=== PATIENT | female | born 1990 ===

== ENCOUNTER 2019-08-03 08:34 | Emergency (ER) | payer MEDICAID ==
[2019-08-03] MEDS ORDERED: diPHENhydraMINE PO* 50 MG PO ONE (09:11)
--- NOTE | 2019-08-03 09:11 | UC ---
General HPI - HPI Summary HPI Summary: Patient is a 28yo female presenting with lip swelling x3 hours stating "the inside of her lips feel raw." She states she has had other episodes of swelling over the past 2 weeks involving her lips, right eye, and her right hand. She says today has been the worst episode yet. Denies tongue swelling and throat swelling. She denies any rashes or hives. Denies any SOB, wheezing, or difficulty breathing. Denies any new products or foods. Denies prior allergies to anything. Denies anything like this happening in the past. Patient states she only take invega sustenna, which she began 3 months ago. Patient denies anyone in her family ever experiencing similar symptoms that she knows of. - History of Current Complaint Chief Complaint: Marissa Stated Complaint: SWOLLEN LIPS Hx Obtained From: Patient Hx Last Menstrual Period: middle of June Onset/Duration: Sudden Onset Timing: Intermittent Episodes Lasting: - 2 hours Pain Intensity: 0 - Allergy/Home Medications Allergies/Adverse Reactions: Allergies Allergy/AdvReac Type Severity Reaction Status Date / Time No Known Allergies Allergy Verified 08/03/19 08:47 Home Medications: Home Medications Paliperidone SUSTENNA* [Invega Sustenna*] 39 mg IM MONTHLY 08/03/19 [History Confirmed 08/03/19] PMH/Surg Hx/FS Hx/Imm Hx Previously Healthy: Yes - Surgical History Surgical History: None - Family History Known Family History: Positive: Unknown - Social History Alcohol Use: Rare Substance Use Type: None Smoking Status (MU): Never Smoked Tobacco Review of Systems All Other Systems Reviewed And Are Negative: Yes Constitutional: Positive: Negative. Negative: Fever, Chills Skin: Positive: Other - angioedema of lips Eyes: Positive: Negative ENT: Negative: Sore Throat - denies swelling or tingling in throat, Ear Ache, Nasal Discharge, Sinus Congestion, Sinus Pain/Tenderness Respiratory: Positive: Negative, Other - denies wheezing or SOB. Negative: Shortness Of Breath, Cough Cardiovascular: Positive: Negative. Negative: Palpitations, Chest Pain Gastrointestinal: Positive: Negative. Negative: Abdominal Pain, Vomiting, Diarrhea, Nausea Neurovascular: Positive: Negative Neurological: Negative: Headache, Paresthesia, Numbness Psychological: Positive: Negative Physical Exam Triage Information Reviewed: Yes Appearance: Well-Appearing, No Pain Distress, Well-Nourished Vital Signs: Initial Vital Signs Temp 97.4 F 08/03/19 08:43 Pulse 71 08/03/19 08:43 Resp 16 08/03/19 08:43 BP 101/64 08/03/19 08:43 Pulse Ox 100 08/03/19 08:43 Vital Signs Reviewed: Yes Eyes: Positive: Conjunctiva Clear ENT Exam: Other - no tongue swelling noted ENT: Positive: Hearing grossly normal, Pharynx normal, TMs normal, Uvula midline. Negative: Pharyngeal erythema, Nasal congestion, Nasal drainage, Trismus, Muffled voice, Hoarse voice Neck exam: Normal Neck: Positive: Supple, Nontender, No Lymphadenopathy Respiratory Exam: Normal Respiratory: Positive: Lungs clear, Normal breath sounds, No respiratory distress, No accessory muscle use. Negative: Stridor, Wheezing Cardiovascular Exam: Normal Cardiovascular: Positive: RRR. Negative: Tachycardia Neurological: Positive: Alert, Muscle Tone Normal Psychological: Positive: Age Appropriate Behavior Skin Exam: Normal Skin: Negative: Rashes Course/Dx - Course Course Of Treatment: Patient was also examined by Dr. Harris. Patient was informed of possible causes of angioedema, including allergic reaction to medications and hereditary angioedema. She was instructed to stay for observation, to which she agreed. Patient continues to sit comfortably without further progression of swelling. She shows no sign of respiratory distress. Patient was here for approximately [id number]. Asked her to stay for a little longer but she refused, stating she needed to leave. At departure, patient states she feels better and her swelling has decreased significantly. She notes being able to move her lips better as well. No signs of respiratory distress. Instructed the patient to continue to take benadryl as directed and prednisone as prescribed for symptomatic relief. I stressed the importance of follow up with the Physician Referral and establish with a PCP. Instructed her to mention to them possible work up for hereditary angioedema. Patient had blood drawn for CBC and CMP here. Patient voiced understanding and agreed to treatment plan. Dr. Harris agreed to treatment plan. - Diagnoses Provider Diagnosis: Angioedema of lips Discharge ED - Sign-Out/Discharge Documenting (check all that apply): Patient Departure All imaging exams completed and their final reports reviewed: No Studies - Discharge Plan Condition: Stable Disposition: HOME Prescriptions: predniSONE TAB* [Deltasone 20 MG TAB*] 40 mg PO DAILY #10 tab predniSONE TAB* [Deltasone 20 MG TAB*] 40 mg PO DAILY #10 tab Patient Education Materials: Angioedema (ED) Referrals: Care [facility] [Outside] - If Needed [facility] [Outside] - As Soon As Possible Additional Instructions: As discussed, it is difficult to know what is causing the swelling of your lips. You may continue to take Benadryl at home as directed. Take the prednisone as prescribed for your lip swelling. It is important that you follow up as soon as possbile with the Physician Referral as listed below. Be sure to mention to them that you had had blood work done already and to look into possible Hereditary Angioedema as a cause. Go to the emergency room if you experience increased swelling, tongue tingling or swelling, throat tingling or swelling, shortness of breath, wheezing, or difficulty breathing. - Billing Disposition and Condition Condition: STABLE Disposition: Home - Attestation Statements Provider Attestation: Patient was presented to me by the TAYO. Patient has had periodic swelling in her lips, eye, hand off-and-on for the past 2 weeks. Patient has never had symptoms like this before. Patient has no family history of angioedema. Patient is not on any medicine outside of [facility] which she started 2 months ago. Upon my examination, patient had angioedema of the upper lip but no airway involvement. Patient is overall well-appearing. Patient is given a dose of Benadryl and steroids here and monitored for 1.5 hours with improvement in her symptoms. Patient had baseline CBC and CMP performed to start the workup for acquired angioedema. Patient is also provided with a primary care doctor to follow up with as she does not have one here.
[2019-08-03] MEDS ORDERED: predniSONE TAB* 20 MG PO ONE (09:14)
[2019-08-03 15:35] LABS: ABS Basophils 0.1 10^3/ul (0-0.2); ABS Eosinophils 0.1 10^3/ul (0-0.6); ABS Lymphocytes 1.7 10^3/ul (1.0-4.8); ABS Monocytes 0.4 10^3/ul (0-0.8); ABS Neutrophils 2.6 10^3/ul (1.5-7.7); Eosinophil % 2.5 %; Hematocrit 41 % (35-47); Hemoglobin 13.9 g/dL (12.0-16.0); Lymphocyte % 34.5 %; Mean Corpuscular HGB Conc 34 g/dL (31-36); Mean Corpuscular Hemoglobin 30 pg (27-31); Mean Corpuscular Volume 90 fL (80-97); Mean Platelet Volume 8.5 fL (7.4-10.4); Platelet Count 224 10^3/uL (150-450); Red Blood Count 4.59 10^6 /uL (3.70-4.87); Red Cell Distribution Width 15 % (10-15); White Blood Count 4.9 10^3/uL (3.5-10.8)
[2019-08-03 19:37] LABS: Albumin 4.3 g/dL (3.2-5.2); Calcium 9.7 mg/dL (8.6-10.3); Potassium 4.4 mmol/L (3.5-5.0); Total Bilirubin 0.6 mg/dL (0.2-1.0)
[2019-08-03 19:43] LABS: Albumin/Globulin Ratio 1.5 (1-3); BUN/Creatinine Ratio 18.2 (8-20); EGFR African American 80.2 (>60); EGFR Non-African American 66.3 (>60); Globulin 2.9 g/dL (2-4); Total Protein 7.2 g/dL (6.4-8.9)
--- NOTE | 2019-08-04 14:58 | UC ---
- Progress Note Progress Note: Progress note: pt with dx of angioedema. Labs return : elevated AST at 112; Creatinine: =0.99. Otherwise, WNL. Call patient to check on condition. Patient should follow up with PMD for possible hereditary angioedema work up. Jose Alberto Garcia MD Course/Dx - Diagnoses Provider Diagnoses: Angioedema of lips Discharge ED - Sign-Out/Discharge Documenting (check all that apply): Post-Discharge Follow Up All imaging exams completed and their final reports reviewed: No Studies - Discharge Plan Condition: Stable Disposition: HOME Prescriptions: predniSONE TAB* [Deltasone 20 MG TAB*] 40 mg PO DAILY #10 tab predniSONE TAB* [Deltasone 20 MG TAB*] 40 mg PO DAILY #10 tab Patient Education Materials: Angioedema (ED) Referrals: Care [facility] [Outside] - If Needed [facility] [Outside] - As Soon As Possible Additional Instructions: As discussed, it is difficult to know what is causing the swelling of your lips. You may continue to take Benadryl at home as directed. Take the prednisone as prescribed for your lip swelling. It is important that you follow up as soon as possbile with the Physician Referral as listed below. Be sure to mention to them that you had had blood work done already and to look into possible Hereditary Angioedema as a cause. Go to the emergency room if you experience increased swelling, tongue tingling or swelling, throat tingling or swelling, shortness of breath, wheezing, or difficulty breathing. - Billing Disposition and Condition Condition: STABLE Disposition: Home
== END 2019-08-03 10:21 | disposition home or self-care (01) ==
LOC: UCEAST 08:34
DX: T78.3XXA Angioneurotic edema, initial encounter (principal)
CPT/HCPCS: 36415; 80053; 85025; 99202; A9270-GY; G0463; J7512

== ENCOUNTER 2020-01-16 16:59 | Emergency (ER) | payer MEDICAID, OTHER ==
--- NOTE | 2020-01-16 19:30 | UC ---
FLU HPI - HPI Summary HPI Summary: 29-year-old female presents with 4 day history of headache, body aches, nasal congestion, and sinus pressure. Denies fever, chills, ear pain, sore throat, cough, chest pain, shortness of breath, abdominal pain, nausea, vomiting, diarrhea. - History of Current Complaint Chief Complaint: UCGeneralIllness Stated Complaint: FLU LIKE SYMPTOMS Time Seen by Provider: 01/16/20 19:09 Hx Obtained From: Patient Hx Last Menstrual Period: middle of June Pain Intensity: 6 - Allergy/Home Medications Allergies/Adverse Reactions: Allergies Allergy/AdvReac Type Severity Reaction Status Date / Time No Known Allergies Allergy Verified 01/16/20 17:46 Home Medications: Home Medications NK [No Home Medications Reported] 01/16/20 [History Confirmed 01/16/20] PMH/Surg Hx/FS Hx/Imm Hx Previously Healthy: Yes - Denies significant PMH - Surgical History Surgical History: None - Family History Known Family History: Positive: Unknown - Social History Occupation: Employed Full-time Lives: Alone Alcohol Use: None Substance Use Type: None Smoking Status (MU): Never Smoked Tobacco Review of Systems All Other Systems Reviewed And Are Negative: Yes Constitutional: Negative: Fever, Chills Skin: Negative: Rash Eyes: Negative: Drainage, Eye Redness ENT: Positive: Nasal Discharge, Sinus Congestion, Sinus Pain/Tenderness. Negative: Sore Throat, Ear Ache Respiratory: Negative: Shortness Of Breath, Cough Cardiovascular: Negative: Palpitations, Chest Pain Gastrointestinal: Negative: Abdominal Pain, Vomiting, Diarrhea, Nausea Genitourinary: Positive: Negative Musculoskeletal: Positive: Myalgia Neurological/Mental Status: Positive: Headache Is Patient Immunocompromised?: No Physical Exam - Summary Physical Exam Summary: GENERAL APPEARANCE: Well developed, well nourished, alert and cooperative, and appears to be in no acute distress. EYES: Conjunctiva clear. No drainage. EARS: External auditory canals and tympanic membranes clear, hearing grossly intact. NOSE: Mild to moderate nasal congestion. No nasal discharge. Maxillary sinus tenderness. THROAT: Pharynx normal. No tonsilar inflammation, swelling, exudate, or lesions. Uvula midline. NECK: Neck supple, non-tender without lymphadenopathy. CARDIAC: Normal S1 and S2. No S3, S4 or murmurs. Rhythm is regular. There is no peripheral edema, cyanosis or pallor. Extremities are warm and well perfused. Capillary refill is less than 2 seconds. Peripheral pulses intact. LUNGS: Clear to auscultation without rales, rhonchi, wheezing or diminished breath sounds. ABDOMEN: Positive bowel sounds. Soft, nondistended, nontender. No guarding or rebound. No masses or hepatosplenomegally. MUSKULOSKELETAL: ROM intact to all extremities. No joint erythema or tenderness. Normal muscular development. Normal gait. SKIN: Skin normal color, texture and turgor with no lesions or eruptions. Triage Information Reviewed: Yes Vital Signs: Initial Vital Signs Temp 98.4 F 01/16/20 17:47 Pulse 71 01/16/20 17:47 Resp 15 01/16/20 17:47 BP 102/64 01/16/20 17:47 Pulse Ox 100 01/16/20 17:47 Vital Signs Reviewed: Yes Flu Course/Dx - Course Course Of Treatment: 29-year-old female presents with 4 day history of headache, body aches, nasal congestion, and sinus pressure. Denies fever, chills, ear pain, sore throat, cough, chest pain, shortness of breath, abdominal pain, nausea, vomiting, diarrhea. Afebrile. Vital signs stable. Patient had mild to moderate nasal congestion, maxillary sinus tenderness, normal TMs, normal pharynx without tonsillar swelling or exudate, no cervical lymphadenopathy, clear bilateral breath sounds, and otherwise unremarkable exam. Rapid flu test was negative. Reviewed results with the patient. Recommending symptomatic treatment for viral upper respiratory infection. She is to follow-up with her primary care provider in 3-5 days if symptoms are not improving. Anticipatory guidance and warning symptoms reviewed with the patient. Verbalizes understanding and agrees to plan of care. - Differential Dx/Diagnosis Differential Diagnosis/HQI/PQRI: Bronchitis, Influenza, Pneumonia, Upper Respiratory Infection Provider Diagnosis: Viral URI Discharge ED - Sign-Out/Discharge Documenting (check all that apply): Patient Departure All imaging exams completed and their final reports reviewed: No Studies - Discharge Plan Condition: Stable Disposition: HOME Patient Education Materials: Upper Respiratory Infection (ED) Forms: *Work Release Referrals: No Primary Care Phys,NOPCP [Primary Care Provider] - Additional Instructions: Your flu test in the clinic today was negative. Get plenty of rest. Drink plenty of fluids to avoid dehydration. Use a saline rinse kit such as Neti Pot or NeilMed at least twice a day to help thin secretions and promote drainage of the sinuses. Use fluticasone (Flonase) nasal spray 2 sprays each nostril once daily. Take over the counter acetaminophen (Tylenol) or ibuprofen (Advil, Motrin) according to directions as needed for pain or fever. Use salt water gargles several times a day if you have any sore throat. You may also use Chloraseptic spray or Cepacol lonzenges according to directions which contain a numbing medication and can provide some temporary relief from your sore throat. Follow up with your primary care provider in 3-5 days if symptoms persist. Seek immediate medical attention in the emergency room if you have fever greater than 100.5 F despite taking acetaminophen or ibuprofen, have chest pain , difficulty breathing, are unable to swallow, or have any worsening of symptoms. - Billing Disposition and Condition Condition: STABLE Disposition: Home - Attestation Statements Provider Attestation: This patient was not seen by me. I was available for consult. Chart reviewed. JOHN PAUL
[2020-01-16 19:32] LABS: Influenza A Molecular Negative (Negative); Influenza B Molecular Negative (Negative)
== END 2020-01-16 20:15 | disposition home or self-care (01) ==
LOC: UCCORT 16:59
DX: J06.9 Acute upper respiratory infection, unspecified (principal)
CPT/HCPCS: 99211; G0463